=== PATIENT | female | born 1930 | race Caucasian/White ===

== ENCOUNTER 2018-08-10 02:31 | Observation (INO) | payer MEDICARE ==
[2018-08-10] MEDS ORDERED: Sodium Chloride 0.9% 1000 ML 1,000 ML ONE (03:34)
[2018-08-10 06:09] LABS: Hematocrit 42.3 % (35-47); Hemoglobin 13.8 gm/dl (12.0-16.0); Mean Corpuscular Hgb Concent. 32.6 g/dl (32-36); White Blood Count 11.3 K/mm3 (4.0-10.5)
[2018-08-10 06:10] LABS: BLOOD UREA NITROGEN 13 mg/dL (7-17); CHLORIDE 101 mmol/L (98-107); Carbon Dioxide 25 mmol/L (22-30); Glucose 115 mg/dL (74-106); Mean Corpuscular Hemoglobin 30.7 pg (26-32); Mean Platelet Volume 9.9 fl (6-9.5); Platelet Count 315 K/mm3 (150-450); Potassium 3.6 mmol/L (3.5-5.1); Red Cell Distribution Width 13.2 % (11.5-14.0); SODIUM 137 mmol/L (137-145)
[2018-08-10 06:11] LABS: ALBUMIN 4.1 g/dL (3.5-5.0); ALKALINE PHOSPHATASE 126 U/L (38-126); AMYLASE 59 U/L (30-110); Calcium 9.2 mg/dL (8.4-10.2); LIPASE 126 U/L (23-300); SGOT/AST 27 U/L (14-36); SGPT/ALT 47 U/L (0-35)
[2018-08-10 06:12] LABS: ANION GAP 14.6 MEQ/L (5-15); PROTIME 11.6 SECONDS (9.95-12.35); PTT 24.4 SECONDS (25.3-37.0)
[2018-08-10 06:13] LABS: Appearance CLEAR (CLEAR); Bilirubin NEGATIVE (NEGATIVE); Blood NEGATIVE Ery/ul (0-5); Epithelial Cells RARE /HPF (FEW); Glucose NEGATIVE (NEGATIVE); Ketones TRACE (NEGATIVE); Leukocyte Esterase NEGATIVE (NEGATIVE); Nitrite NEGATIVE (NEGATIVE); Protein,Urine Dip NEGATIVE (Negative); Specific Gravity 1.009 (1.005-1.025); Urobilinogen NORMAL mg/dL (0-1)
[2018-08-10 06:14] LABS: Mucus SLIGHT /HPF (NEGATIVE)
[2018-08-10] MEDS ORDERED: ACETAMINOPHEN PO PRN (09:53)
[2018-08-10] MEDS ORDERED: MAG PO PRN (09:53)
[2018-08-10] MEDS ORDERED: ASA PO PRN (09:53)
[2018-08-10] MEDS ORDERED: CAFF PO PRN (09:53)
[2018-08-10] MEDS ORDERED: [UNRECOGNIZED DRUG - OTHER] PO PRN (09:53)
[2018-08-10] MEDS ORDERED: NON-FORMULARY ITEM (L.Acidoph,Paracasei, B.Lactis [Probiotic] 1 EACH) PO SCH (10:00)
[2018-08-10] MEDS ORDERED: NON-FORMULARY ITEM (Omeprazole Magnesium [Prilosec Otc] 20 MG) PO SCH (10:00)
--- NOTE | 2018-08-10 10:04 | HP ---
HISTORY OF PRESENT ILLNESS: This is an 88 year-old patient of Dr. Hanson's who presented to the emergency department early this morning complaining of bright red blood in the stool after having had diarrhea for two to three hours yesterday. She reports she had a colonoscopy with Dr. Krishna Rebolledo years ago which showed polyps but she cannot remember the exact date of this. There is no copy of this in her outpatient record. The patient reports she has been told in the past that she has internal hemorrhoids. The emergency room doctor did a rectal exam and verbally reported to me that she did have some internal hemorrhoids. The patient denies any pain. She reports she has had some nausea but no vomiting and no fever. She reports she has never had anything like this before. She is very concerned ab out where the blood coming from and the amount of blood that she is having. She reports she was okay here in the hospital until this morning when she again had a cup full of bright red blood in the stool. She was recently treated for a urinary tract infection and finished her antibiotics and followed with Dr. Hanson about this last Tuesday and reports this is much better. REVIEW OF SYSTEMS: No chest pain. No dyspnea. No lower extremity edema. No abdominal pain. No fever. No cough. No rhinorrhea. PAST MEDICAL HISTORY: Hypertension, internal hemorrhoids, gastroesophageal reflux, hypokalemia. PAST SURGICAL HISTORY: None. MEDICATIONS: Please see the medication reconciliation form which I reviewed. ALLERGIES: PENICILLIN, SULFA, TRIMETHOPRIM, OXYETERACYCLINE. SOCIAL HISTORY: She lives alone. Her daughter lives next door. She denies any tobacco or alcohol use. FAMILY HISTORY: Both her mother and father had heart problems and are . PHYSICAL EXAMINATION: VITAL SIGNS: Temperature current 98F, temperature max 98F, heart rate 92 to 98, respiratory rate 18, blood pressure 159 to 184 over 83 to 92. Oxygen saturation 96 to 97% on room air. GENERAL: The patient is a pleasant talkative lady lying in bed in no acute distress. CVS: She has a regular rate and rhythm. No murmurs, gallops or rubs are appreciated. CHEST: Clear to auscultation bilaterally. No crackles or wheezes. ABDOMEN: Soft, nontender, nondistended with normal bowel sounds. EXTREMITIES: No clubbing, cyanosis or edema. SKIN: Warm, dry and intact. LABORATORY DATA AND TESTS: On admission her hemoglobin was 13.8. International normalized ratio 1. Glucose 115. UA negative. Her stool was positive for blood. ASSESSMENT AND PLAN: 1) HEMATOCHEZIA: She has been placed on colonoscopy schedule for Dr. Hanson to do a scope for her tomorrow, will plan to prep her today for this. 2) HYPERTENSION: Will resume her home antihypertensive. 3) DEEP VENOUS THROMBOSIS PROPHYLAXIS: Will use SERGE hose and hold any anticoagulation.
[2018-08-10 11:05] LABS: 027 TOX PROD PRESUMPTIVE NEGATIVE (NEGATIVE); TOXIGENIC C. DIFF ORG NEGATIVE (NEGATIVE)
[2018-08-10] MEDS: NORVASC 5 MG PO SCH (11:39)
[2018-08-10] MEDS: Klor Con 10 MEQ PO SCH (11:39)
[2018-08-10] MEDS: Zestril 20 MG PO SCH ×2 (11:40→22:37)
[2018-08-10] MEDS: Protonix 40MG Tablet PO SCH (11:40)
[2018-08-10] MEDS: FEOSOL 325 MG PO SCH (11:40)
[2018-08-10] MEDS ORDERED: Golytely Solution 4000 ML PO ONE ×2 (12:00→14:00)
[2018-08-10] MEDS ORDERED: DULCOLAX 5 MG PO ONE (14:00)
[2018-08-10] MEDS: Sodium Chloride 0.9% 1000 ML 1,000 ML IV SCH (14:22)
[2018-08-10 15:50] LABS: Hematocrit 43.9 % (35-47); Hemoglobin 13.9 gm/dl (12.0-16.0); Mean Cell Volume 96.3 fl (78-100); Mean Corpuscular Hemoglobin 30.5 pg (26-32); Mean Corpuscular Hgb Concent. 31.7 g/dl (32-36); Mean Platelet Volume 10.3 fl (6-9.5); Platelet Count 316 K/mm3 (150-450); Red Blood Count 4.56 M/mm3 (4.1-5.4); Red Cell Distribution Width 13.6 % (11.5-14.0); White Blood Count 12.3 K/mm3 (4.0-10.5)
[2018-08-10] MEDS: TYLENOL EXTRA STRENGTH 500 MG PO PRN (16:14)
[2018-08-10 16:29] LABS: BAND 1 % (0.0-2.0); Basophil 1 % (0.0-1.0); Eosinophil 1 % (0.00-3.0); Lymphocytes 22 % (24-44); Monocyte 6 % (0.0-12.0); Neutrophils 69 % (36.0-66.0); Platelet Estimate NORMAL (NORMAL); Total Cells Counted 100; Toxic Granulation 1+
[2018-08-10] MEDS ORDERED: MULTIVITAMIN PO SCH (22:00)
[2018-08-10] MEDS ORDERED: FOLIC ACID PO SCH (22:00)
[2018-08-10] MEDS ORDERED: Toprol Xl 100 MG PO SCH (22:00)
[2018-08-10] MEDS ORDERED: THERAGRAN MULTIVITAMIN PO SCH (22:00)
[2018-08-10] MEDS ORDERED: IRON PO SCH (22:00)
[2018-08-11] MEDS: Sodium Chloride 0.9% 1000 ML 1,000 ML IV SCH (00:26)
[2018-08-11] MEDS: TYLENOL EXTRA STRENGTH 500 MG PO PRN ×2 (03:44→09:50)
[2018-08-11 05:35] LABS: Hematocrit 39.2 % (35-47); Hemoglobin 12.7 gm/dl (12.0-16.0); Mean Cell Volume 94.9 fl (78-100); Mean Corpuscular Hemoglobin 30.8 pg (26-32); Mean Corpuscular Hgb Concent. 32.4 g/dl (32-36); Mean Platelet Volume 9.4 fl (6-9.5); Platelet Count 257 K/mm3 (150-450); Red Blood Count 4.13 M/mm3 (4.1-5.4); Red Cell Distribution Width 13.1 % (11.5-14.0); White Blood Count 8.4 K/mm3 (4.0-10.5)
[2018-08-11 05:57] LABS: ANION GAP 10.9 MEQ/L (5-15); BLOOD UREA NITROGEN 6 mg/dL (7-17); CHLORIDE 103 mmol/L (98-107); Calcium 8.4 mg/dL (8.4-10.2); Carbon Dioxide 27 mmol/L (22-30); Creatinine 1 0.45 mg/dL (0.52-1.04); Glucose 96 mg/dL (74-106); Potassium 3.6 mmol/L (3.5-5.1); SODIUM 138 mmol/L (137-145)
[2018-08-11] MEDS ORDERED: Lactated Ringers 1,000 ML IV SCH (07:00)
[2018-08-11 07:21] LABS: BAND 4 % (0.0-2.0); Basophil 1 % (0.0-1.0); Eosinophil 4 % (0.00-3.0); Lymphocytes 23 % (24-44); Monocyte 7 % (0.0-12.0); Neutrophils 61 % (36.0-66.0); Total Cells Counted 100
[2018-08-11 07:22] LABS: Platelet Estimate NORMAL (NORMAL); Toxic Granulation 1+
[2018-08-11 07:23] LABS: Granulocyte Absolute (ANC) 5.45 (1.4-6.9)
--- NOTE | 2018-08-11 09:54 | OP ---
SURGERY DATE/TIME: 08/11/2018 0835 PREOPERATIVE DIAGNOSIS: Rectal bleeding. POSTOPERATIVE DIAGNOSIS: Segmental colitis in the descending colon and sigmoid diverticulosis. PROCEDURE: Colonoscopy. SURGEON: Dr. Hanson. ANESTHESIA: MAC. Medications given by anesthesia department. HISTORY: The patient is an 88 year-old white female presented to the emergency room with diarrhea and rectal bleeding. The patient reports that she had previous colonoscopies with polyps having been removed several years ago. The patient is felt the need to have endoscopic evaluation. She was appraised of the risks of the procedure including the risk of perforation, phlebitis, untoward reaction to medication, bleeding and missed lesions. The patient verbalized her understanding and desired to have the procedure performed. DESCRIPTION OF PROCEDURE: The patient was given the medications by the anesthesia department. She had continuous pulse oximetry, ECG monitoring, intermittent blood pressure monitoring and tidal CO2 monitoring during the examination. She was placed in the left lateral decubitus position. A digital rectal examination was performed and revealed two small external hemorrhoids, normal anal sphincter tone and no masses. The flexible Olympus pediatric colonoscope was used to intubate the rectum. A view of the colon was developed sequentially to the cecum. Upon insertion and withdrawal, including a retroflex view in the rectum, was noted a segment of descending colon approximately 20 cm in length that was very erythematous but no active bleeding was noted. It was bordering on erosions but no ulcerations. There was also noted to be mild sigmoid diverticulosis. No other mucosal lesions being encountered the scope was removed from the patient who tolerated the procedure well and was sent back to OP recovery in good condition. The prep was noted to be good.
[2018-08-11] MEDS ORDERED: Acidophilus TABLET PO SCH (10:00)
[2018-08-11] MEDS: FEOSOL 325 MG PO SCH (10:47)
[2018-08-11] MEDS: NORVASC 5 MG PO SCH (10:48)
[2018-08-11] MEDS: Klor Con 10 MEQ PO SCH (10:48)
[2018-08-11] MEDS: Zestril 20 MG PO SCH (10:49)
[2018-08-11] MEDS: Protonix 40MG Tablet PO SCH (10:49)
[2018-08-11 11:19] VITALS: O2SAT 92
[2018-08-11 12:47] VITALS: BP 123/70; PULSE 83
[2018-08-11] MEDS ORDERED: DIPRIVAN 200 MG/20 ML IV ONE (13:14)
[2018-08-11] MEDS ORDERED: Ketamine HCl 50 MG/ML IV ONE (13:14)
== END 2018-08-11 13:15 | disposition home or self-care (01) ==
LOC: ED 02:31 → MED SURG 05:52
PROVIDERS: ADMIT Family Medicine; ATTEND Family Medicine
DX: K52.9 Noninfective gastroenteritis and colitis, unspecified (principal); K57.30 Diverticulosis of large intestine without perforation or abscess without bleeding; K92.1 Melena; K64.8 Other hemorrhoids; I10 Essential (primary) hypertension; Z86.010 Personal history of colon polyps; Z79.899 Other long term (current) drug therapy
CPT/HCPCS: 36415; 45378; 80048; 80053; 81001; 82150; 82272; 83690; 85025; 85027; 85610; 85730; 87493; 93268; 94760; 94762; 96360; 96361; 99285; G0378; 99100; J2704; A9270-GY

== ENCOUNTER 2020-01-23 17:53 | Emergency (ER) | payer MEDICARE ==
[2020-01-23 18:11] VITALS: BP 162/79; PULSE 112; O2SAT 98
[2020-01-23 18:35] LABS: Absolute Neutrophil Ct (ANC) 17.91 (1.4-6.9); BASOPHIL % 0.2 % (0.0-0.4); Basophil (Absolute #) 0.04 (0-0.4); Eosinophil % 1.7 % (0.00-5.0); Eosinophil (Absolute #) 0.36 (0-0.5); Hematocrit 41.8 % (35-47); Hemoglobin 13.9 gm/dl (12.0-16.0); Lymphocyte (Absolute #) 1.77 (1.0-4.6); Lymphocytes % 8.3 % (24.0-44.0); Mean Corpuscular Hemoglobin 31.6 pg (26-32); Mean Corpuscular Hgb Concent. 33.3 g/dl (32-36); Mean Platelet Volume 10.4 fl (7.5-11.0); Monocyte (Absolute #) 1.14 (0.0-1.3); Monocytes % 5.4 % (0.0-12.0); Neutrophil % 84.4 % (36.0-66.0); Platelet Count 232 K/mm3 (150-450); Red Cell Distribution Width 12.7 % (11.5-14.0); White Blood Count 21.2 K/mm3 (4.0-10.5)
[2020-01-23 18:44] LABS: ALBUMIN 4.5 g/dL (3.5-5.0); ALKALINE PHOSPHATASE 137 U/L (38-126); ANION GAP 15.6 MEQ/L (5-15); BLOOD UREA NITROGEN 15 mg/dL (7-17); CHLORIDE 94 mmol/L (98-107); Calcium 9.1 mg/dL (8.4-10.2); Carbon Dioxide 24 mmol/L (22-30); Creatinine 1 0.69 mg/dL (0.52-1.04); Glucose 196 mg/dL (74-106); Potassium 3.9 mmol/L (3.5-5.1); SGOT/AST 394 U/L (14-36); SGPT/ALT 331 U/L (0-35); SODIUM 130 mmol/L (137-145); Total Protein 7.4 g/dL (6.3-8.2)
[2020-01-23] MEDS ORDERED: TYLENOL EXTRA STRENGTH 500 MG ONE (18:44)
[2020-01-23] MEDS ORDERED: TYLENOL EXTRA STRENGTH 500 MG PO STA (18:44)
[2020-01-23] MEDS ORDERED: Sodium Chloride 0.9% 1000 ML 1,000 ML ONE (19:11)
--- NOTE | 2020-01-23 19:15 | ERPHSYRPT ---
- History of Present Illness Time Seen by Provider: 01/23/20 18:09 Source: patient, family Exam Limitations: clinical condition Patient Subjective Stated Complaint: Pt states "I had a headache and was heading into the house and I missed a step and fell back onto the concrete and hit my head." Triage Nursing Assessment: Pt presented alert and oriented X 3, skin pwd Pt ambulates with an upright steady gait, able to speak in clear full sentences pt in no apparent respiratory distress. Pt has large hematoma to occipus, no bleeding noted. Physician History: 89 years old female with history of hypertension, hyperlipidemia, presented in the ER with chief complaint of fall and headache. Patient report she was having headache earlier today and was getting into the house, missed a step and fell backward and hit her back of her head against the concrete. Did not lose consciousness. She has small hematoma/swelling of the back of her head. No active bleeding. She denies any nausea or vomiting. Per daughter who was watching her reports she is a little confused than normal. Denies any chest pain palpitations or shortness of breath. No neck pain. No back pain. No injury anywhere else. History is limited Occurred: just prior to arrival Severity: moderate Head Injury Location: occipital Method of Injury: fell Loss of Consciousness: no loss of consciousness Associated Symptoms: headaches, No nausea, No vomiting, No abdominal pain, No shortness of breath Allergies/Adverse Reactions: Penicillins Allergy (Intermediate, Verified 06/19/13 12:04) Hives sulfamethoxazole [From Bactrim] Allergy (Mild, Verified 06/19/13 12:04) Headache ELEVATES BLOOD PRESSURE, FLUSHED SKIN AND SEVERE HEADACHE trimethoprim [From Bactrim] Allergy (Mild, Verified 06/19/13 12:04) Headache ELEVATES BLOOD PRESSURE, FLUSHED SKIN AND SEVERE HEADACHE oxytetracycline [From Terramycin] Allergy (Verified 08/10/18 06:35) Rash Home Medications: ASA/Acetaminophen/Mag/Alh/Caff [Vanquish Caplet] 1 each PO TID PRN PRN 08/10/18 [History] Acetaminophen [Tylenol Extra Strength] 1,000 mg PO TID PRN PRN 08/10/18 [History] Amlodipine Besylate 10 mg PO DAILY 08/10/18 [History] Ferrous Sulfate 325 mg PO DAILY 08/10/18 [History] L.acidoph,Paracasei, B.lactis [Probiotic] 1 each PO UD 08/10/18 [History] Metoprolol Succinate 100 mg [Toprol Xl 100 MG] 100 mg PO HS 08/10/18 [History] Multivitamin/Iron/Folic Acid [Centrum Women Tablet] 1 each PO HS 08/10/18 [History] Omeprazole Magnesium [Prilosec Otc] 20 mg PO DAILY 08/10/18 [History] Potassium Chloride 10 Meq Tab* [Klor Con 10 MEQ] 10 meq PO DAILY 08/10/18 [History] lisinopriL [Lisinopril] 20 mg PO BID 08/10/18 [History] Nitrofurantoin Macro 100 mg [Macrobid 100MG Capsule] 100 mg PO BID 01/23/20 [History] Nystatin 1 ml PO DAILY 01/23/20 [History] Hx Tetanus, Diphtheria Vaccination/Date Given: Yes Hx Influenza Vaccination/Date Given: Yes Hx Pneumococcal Vaccination/Date Given: Yes Immunizations Up to Date: Yes Travel Risk - International Travel Have you traveled outside of the country in past 3 weeks: No - Coronavirus Screening Are you exhibiting any of the following symptoms?: No Close contact with a COVID-19 positive Pt in past 14-21 Days: No - Review of Systems Constitutional: No Symptoms Eyes: No Symptoms Ears, Nose, & Throat: No Symptoms Respiratory: No Symptoms Cardiac: No Symptoms Abdominal/Gastrointestinal: No Symptoms Genitourinary Symptoms: No Symptoms Musculoskeletal: No Symptoms Skin: No Symptoms Neurological: Headache Psychological: No Symptoms Endocrine: No Symptoms Hematologic/Lymphatic: No Symptoms Immunological/Allergic: No Symptoms - Past Medical History Pertinent Past Medical History: Yes Neurological History: No Pertinent History ENT History: No Pertinent History Cardiac History: Hypertension Respiratory History: No Pertinent History Endocrine Medical History: No Pertinent History Musculoskeletal History: Arthritis GI Medical History: No Pertinent History History: No Pertinent History Psycho-Social History: No Pertinent History Female Reproductive Disorders: No Pertinent History - Past Surgical History Past Surgical History: No Neuro Surgical History: No Pertinent History Cardiac: No Pertinent History Respiratory: No Pertinent History Gastrointestinal: No Pertinent History Genitourinary: No Pertinent History Musculoskeletal: No Pertinent History Female Surgical History: No Pertinent History - Social History Smoking Status: Never smoker Exposure to second hand smoke: No Drug Use: none Patient Lives Alone: Yes - Nursing Vital Signs Nursing Vital Signs: Initial Vital Signs Temperature 98.6 F 01/23/20 18:01 Pulse Rate 112 H 01/23/20 18:01 Respiratory Rate 20 01/23/20 18:01 Blood Pressure 162/79 01/23/20 18:01 O2 Sat by Pulse Oximetry 98 01/23/20 18:01 Pain Scale Pain Intensity 10 - Caio Coma Score Best Eye Response (Caio): (4) open spontaneously Best Verbal Response ([place]): (4) confused conversation Best Motor Response ([place]): (6) obeys commands Caio Total: 14 - Physical Exam General Appearance: no apparent distress, alert Head Injury: contusions, swelling, tenderness (occipital area ), No active bleeding, No Cross's Sign Eye Exam: bilateral eye: normal inspection, PERRL, EOMI ENT Exam: airway nml, evidence of ENT injury Neck Exam: supple, trachea midline, normal alignment, c-collar in place Cardiovascular/Respiratory Exam: chest non-tender, normal breath sounds, regular rate/rhythm Gastrointestinal/Abdominal Exam: soft, non tender, no distention Back Exam: normal inspection, muscle spasm, No CVA tenderness Extremity Exam: non-tender, normal range of motion Mental Status Exam: alert, oriented x 3, cooperative [place] Exam: normal hearing, normal speech, PERRL Motor/Sensory Exam: no motor deficit, no sensory deficit Skin Exam: normal color, warm SpO2 Interpretation: normal SpO2: 98 O2 Delivery: Room Air - Course Nursing assessment & vital signs reviewed: Yes Ordered Tests: Active Orders 24 hr Category Date Time Status CERVICAL SPINE WO CONTRAST [CT] Stat Exams 01/23/20 18:11 Taken CHEST 1 VIEW (PORTABLE) Stat Exams 01/23/20 18:30 Taken HEAD WITHOUT CONTRAST [CT] Stat Exams 01/23/20 18:11 Taken CBC W DIFF Stat Lab 01/23/20 18:30 Completed CMP Stat Lab 01/23/20 18:30 Completed Medication Summary Discontinued Medications Generic Name Dose Route Start Last Admin Trade Name Freq PRN Reason Stop Dose Admin Acetaminophen 1,000 mg 01/23/20 18:44 01/23/20 18:45 Tylenol Extra Strength 500 Mg PO 01/23/20 18:45 1,000 mg STAT STA Administration Acetaminophen Confirm 08/05/20 18:44 Tylenol Extra Strength 500 Mg Administered 01/23/20 18:45 Dose 1,000 mg .ROUTE .STK-MED ONE Sodium Chloride Confirm 01/23/20 19:11 Sodium Chloride 0.9% 1000 Ml Administered 01/23/20 19:12 Dose 1,000 mls @ ud .ROUTE .STK-MED ONE Lab/Rad Data: Laboratory Result Diagrams 01/23/20 18:30 01/23/20 18:30 Laboratory Results 01/23/20 01/23/20 Range/Units 18:30 18:30 WBC 21.2 H (4.0-10.5) K/mm3 RBC 4.40 (4.1-5.4) M/mm3 Hgb 13.9 (12.0-16.0) gm/dl Hct 41.8 (35-47) % MCV 95.0 (78-100) fl MCH 31.6 (26-32) pg MCHC 33.3 (32-36) g/dl RDW 12.7 (11.5-14.0) % Plt Count 232 (150-450) K/mm3 MPV 10.4 (7.5-11.0) fl Gran % 84.4 H (36.0-66.0) % Eos # (Auto) 0.36 (0-0.5) Absolute Lymphs (auto) 1.77 (1.0-4.6) Absolute Monos (auto) 1.14 (0.0-1.3) Lymphocytes % 8.3 L (24.0-44.0) % Monocytes % 5.4 (0.0-12.0) % Eosinophils % 1.7 (0.00-5.0) % Basophils % 0.2 (0.0-0.4) % Absolute Granulocytes 17.91 H (1.4-6.9) Basophils # 0.04 (0-0.4) Sodium 130 L (137-145) mmol/L Potassium 3.9 (3.5-5.1) mmol/L Chloride 94 L (98-107) mmol/L Carbon Dioxide 24 (22-30) mmol/L Anion Gap 15.6 H (5-15) MEQ/L BUN 15 (7-17) mg/dL Creatinine 0.69 (0.52-1.04) mg/dL Estimated GFR > 60.0 ML/MIN Glucose 196 H (74-106) mg/dL Calcium 9.1 (8.4-10.2) mg/dL Total Bilirubin 0.90 (0.2-1.3) mg/dL AST 394 H (14-36) U/L ALT 331 H (0-35) U/L Alkaline Phosphatase 137 H (38-126) U/L Serum Total Protein 7.4 (6.3-8.2) g/dL Albumin 4.5 (3.5-5.0) g/dL - Progress Progress: pain not gone completely Progress Note: 01/23/20 19:13 89 years old is evaluated for fall and head injury with no loss of consciousness. She is placed in c-collar. She is offered pain medication but refused and wanted Tylenol which is given. CT head show epidural and hemispheric bleed. No midline shift. Discussed with Dr.Teovs Rosado [facility] trauma service and patient is accepted for transfer. Plan discussed with patient and daughter who understand and agree with it. Discussed with : Other Counseled pt/family regarding: diagnosis, rad results - Departure Departure Disposition: Transfer Clinical Impression: Intracranial bleed Condition: Critical Critical Care Time: Yes Critical Care Time(excluding separately billable procedures): Critical 30-74 mins Referrals: CATHERINE SALOMON [Primary Care Provider] -
--- NOTE | 2020-01-24 08:46 | XRAY ---
Indication: Pain following fall. Posterior head contusion. Multiple contiguous axial images obtained through the head without contrast. Comparison: December 10, 2012. New small right frontotemporal parietal subdural hematoma, greatest near the high convexity up to 7 mm diameter. Additional moderate acute blood seen in the paramesencephalic cistern left greater than right. Small acute blood in the interhemispheric fissure and left posterior fossa. No significant mass effect or midline shifting. Fourth ventricle is midline without hydrocephalus. There remains age-appropriate global atrophy. New moderate sized posterior scalp hematoma. Bony calvarium demonstrates nondepressed right occipital fracture. Visualized paranasal sinuses and mastoid air cells are clear. Impression: 1. New multifocal supra and infratentorial acute hemorrhage as detailed without mass effect, midline shift in, or hydrocephalus. 2. New posterior scalp hematoma with nondepressed right occipital fracture. 3. Again atrophy within normal limits for patient's age. Comment: Telephone report was given to ordering clinician Dr. Hernandez at 1855 hrs. on January 23, 2020.
--- NOTE | 2020-01-24 08:48 | XRAY ---
Indication: Status post fall. Dizziness. Comparison: None Portable chest hyperinflated and clear with incidental left upper lobe calcified granuloma. Heart is not enlarged for AP portable technique. Descending aorta is slightly tortuous. Bony thorax intact with mild osteopenia and degenerative changes. Impression: Nonacute chest with chronic features.
--- NOTE | 2020-01-24 08:58 | XRAY ---
Indication: Pain following fall. Multiple contiguous axial images obtained through the cervical spine. Sagittal and coronal reformatted images obtained. Comparison: December 10, 2012. CT head reported separately. Osseous structures remain demineralized consistent with patient's age. Axial images of the cervical spine negative for acute fracture, suspicious bony lesions, or spinal canal stenosis. There remains mild/moderate multilevel endplate spurring and moderate multilevel bilateral degenerative facet hypertrophy. Sagittal and coronal reformatted images demonstrates stable 3-4 mm C3 and C7 anterolisthesis. Also stable mild levoscoliosis. Again multilevel disc space loss worsened at the C3-C4 and C5-C7 levels. No acute compression fracture or new subluxation. Visualized noncontrasted soft tissues again demonstrates moderate bilateral carotid calcifications and minimal biapical bony fibrosis/scarring. Impression: 1. Continued chronic osteopenia, multilevel degenerative spondylosis, grade 1 C3/C7 spondylolisthesis, and levoscoliosis. 2. Negative acute fracture.
== END 2020-01-23 19:29 | disposition short-term general hospital (02) ==
LOC: ED 17:53
DX: I62.9 Nontraumatic intracranial hemorrhage, unspecified (principal); W01.198A Fall on same level from slipping, tripping and stumbling with subsequent striking against other object, initial encounter; Y93.89 Activity, other specified; Y92.9 Unspecified place or not applicable
CPT/HCPCS: 36415; 70450; 71045; 72125; 80053; 85025; 99284; 99291; L0172; A9270-GY

== ENCOUNTER 2020-09-15 11:42 | Emergency (ER) | payer MEDICARE ==
--- NOTE | 2020-09-15 11:47 | ERPHSYRPT ---
- History of Present Illness Time Seen by Provider: 09/15/20 11:47 Source: patient Exam Limitations: no limitations Physician History: This is an 89-year-old white female who last night was sitting in the chair and felt her left ankle was numb and painful as she got up from the chair last evening. This morning, the patient states that she can hardly even bear weight on her left ankle. She states is definitely in her left ankle and not in her left foot or higher. She does not recall any type of acute traumatic injury. Method of Injury: unknown Occurred: yesterday Quality: aching Severity of Pain-Max: moderate Severity of Pain-Current: moderate (Only with weightbearing) Lower Extremities Pain: ankle: left Modifying Factors: Improves With: movement Associated Symptoms: unable to bear weight Allergies/Adverse Reactions: Penicillins Allergy (Intermediate, Verified 09/15/20 11:57) Hives sulfamethoxazole [From Bactrim] Allergy (Mild, Verified 09/15/20 11:57) Headache ELEVATES BLOOD PRESSURE, FLUSHED SKIN AND SEVERE HEADACHE trimethoprim [From Bactrim] Allergy (Mild, Verified 09/15/20 11:57) Headache ELEVATES BLOOD PRESSURE, FLUSHED SKIN AND SEVERE HEADACHE oxytetracycline [From Terramycin] Allergy (Verified 09/15/20 11:57) Rash Home Medications: ASA/Acetaminophen/Mag/Alh/Caff [Vanquish Caplet] 1 each PO TID PRN PRN 08/10/18 [History] Acetaminophen [Tylenol Extra Strength] 1,000 mg PO TID PRN PRN 08/10/18 [History] Amlodipine Besylate 10 mg PO DAILY 08/10/18 [History] Ferrous Sulfate 325 mg PO DAILY 08/10/18 [History] L.acidoph,Paracasei, B.lactis [Probiotic] 1 each PO UD 08/10/18 [History] Metoprolol Succinate 100 mg [Toprol Xl 100 MG] 100 mg PO HS 08/10/18 [History] Multivitamin/Iron/Folic Acid [Centrum Women Tablet] 1 each PO HS 08/10/18 [History] Omeprazole Magnesium [Prilosec Otc] 20 mg PO DAILY 08/10/18 [History] Potassium Chloride 10 Meq Tab* [Klor Con 10 MEQ] 10 meq PO DAILY 08/10/18 [History] lisinopriL [Lisinopril] 20 mg PO BID 08/10/18 [History] Nitrofurantoin Macro 100 mg [Macrobid 100MG Capsule] 100 mg PO BID 01/23/20 [History] Nystatin 1 ml PO DAILY 01/23/20 [History] Hx Tetanus, Diphtheria Vaccination/Date Given: Yes Hx Influenza Vaccination/Date Given: Yes Hx Pneumococcal Vaccination/Date Given: Yes Travel Risk - International Travel Have you traveled outside of the country in past 3 weeks: No - Coronavirus Screening Are you exhibiting any of the following symptoms?: No Close contact with a COVID-19 positive Pt in past 14-21 Days: No - Review of Systems Constitutional: No Symptoms Eyes: No Symptoms Ears, Nose, & Throat: No Symptoms Respiratory: No Symptoms Cardiac: No Symptoms Abdominal/Gastrointestinal: No Symptoms Genitourinary Symptoms: No Symptoms Musculoskeletal: Joint Pain (Left ankle) Skin: No Symptoms Neurological: No Symptoms Psychological: No Symptoms Endocrine: No Symptoms Hematologic/Lymphatic: No Symptoms Immunological/Allergic: No Symptoms All Other Systems: Reviewed and Negative - Past Medical History Pertinent Past Medical History: Yes Neurological History: No Pertinent History ENT History: No Pertinent History Cardiac History: Hypertension Respiratory History: No Pertinent History Endocrine Medical History: No Pertinent History Musculoskeletal History: Arthritis GI Medical History: No Pertinent History History: No Pertinent History Psycho-Social History: No Pertinent History Female Reproductive Disorders: No Pertinent History - Past Surgical History Past Surgical History: No Neuro Surgical History: No Pertinent History Cardiac: No Pertinent History Respiratory: No Pertinent History Gastrointestinal: No Pertinent History Genitourinary: No Pertinent History Musculoskeletal: No Pertinent History Female Surgical History: No Pertinent History - Social History Smoking Status: Never smoker Exposure to second hand smoke: No Drug Use: none Patient Lives Alone: Yes - Nursing Vital Signs Nursing Vital Signs: Initial Vital Signs Temperature 97.1 F 09/15/20 11:49 Pulse Rate 75 09/15/20 11:49 Blood Pressure 163/131 09/15/20 11:49 O2 Sat by Pulse Oximetry 95 09/15/20 11:49 Pain Scale Pain Intensity 9 - Physical Exam General Appearance: no apparent distress, alert, anxiety Eyes, Ears, Nose, Throat Exam: normal ENT inspection, moist mucous membranes Neck Exam: normal inspection, non-tender, supple, full range of motion Cardiovascular/Respiratory Exam: chest non-tender, no respiratory distress Gastrointestinal/Abdominal Exam: non-tender Back Exam: normal inspection, normal range of motion, No CVA tenderness, No vertebral tenderness Hips Exam: bilateral: non-tender, normal inspection, normal range of motion, no evidence of injury Legs Exam: bilateral leg: non-tender, normal inspection, normal range of motion, no evidence of injury Knees Exam: bilateral knee: non-tender, normal inspection, normal range of m otion, no evidence of injury Ankle Exam: right ankle: non-tender, normal range of motion, left ankle: pain, soft tissue tenderness, bilateral ankle: normal inspection, no evidence of injury Foot Exam: bilateral foot: non-tender, normal inspection, normal range of motion, no evidence of injury Neuro/Tendon Exam: normal sensation, normal motor functions, normal tendon functions, responds to pain, no evidence tendon injury Mental Status Exam: alert, oriented x 3, cooperative Skin Exam: normal color, warm, dry SpO2 Interpretation: normal O2 Delivery: Room Air - Course Nursing assessment & vital signs reviewed: Yes Ordered Tests: Active Orders 24 hr Category Date Time Status Cold Application STAT Care 09/15/20 11:51 Active ANKLE (3 VIEWS) Stat Exams 09/15/20 11:50 Completed - Progress Progress: unchanged, pain not gone completely Progress Note: 09/15/20 12:23 X-ray of left ankle reveals no evidence of any acute fracture or dislocation. Counseled pt/family regarding: diagnosis, need for follow-up, rad results - Departure Departure Disposition: Home Clinical Impression: Left ankle sprain Condition: Stable Critical Care Time: No Referrals: CATHERINE SALOMON [Primary Care Provider] - [facility]-Ortho M-F [phone] Additional Instructions: Ice pack to area 3 times a day for the next 48 hours. Tylenol and ibuprofen for pain control. Wear your Papa wrap for comfort. Follow-up with the [facility] orthopedic clinic in 48 hours if symptoms have not improved.
[2020-09-15 11:57] VITALS: O2SAT 95
--- NOTE | 2020-09-15 12:21 | XRAY ---
Indication: Pain. Comparison: None 3 view left ankle demonstrates small well-circumscribed lateral malleolus tip heterotopic ossification either degenerative versus old injury. Elsewhere diffuse soft tissue swelling/edema, osteopenia, small cuboid accessory ossicle, and tiny plantar heel spur.
[2020-09-15 12:33] VITALS: BP 142/84; PULSE 70
== END 2020-09-15 12:41 | disposition home or self-care (01) ==
LOC: ED 11:42
DX: S93.402A Sprain of unspecified ligament of left ankle, initial encounter (principal); M25.572 Pain in left ankle and joints of left foot
CPT/HCPCS: 73610; 99284